=== PATIENT | male | born 1970 | race Two or more races ===

== ENCOUNTER 2022-06-04 21:10 | Emergency (ER) | payer BC, OTHER ==
[~2022-06-04] VITALS: Ht 162.6 cm; Wt 118.0 kg
[~2022-06-04 21:10] MED LIST: DOCU100T15 PO; METF-370 PO
[2022-06-04 23:53] VITALS: BP 134/73
[2022-06-05 00:07] LABS: Urine Bacteria MANY /hpf (None Seen); Urine Mucus FEW (None Seen); Urine Sperm PRESENT /hpf (None Seen); Urine WBC 2 /hpf (0 - 3)
[2022-06-05 00:08] LABS: Urine Specific Gravity 1.015 (1.001-1.035)
[2022-06-05 00:09] LABS: Urine Blood 4+ /uL (Negative)
== END 2022-06-04 23:53 | disposition home or self-care (01) ==
LOC: ER 21:14
DX: R33.9 Retention of urine, unspecified (principal); I10 Essential (primary) hypertension; E11.9 Type 2 diabetes mellitus without complications; Z90.89 Acquired absence of other organs; Z79.899 Other long term (current) drug therapy
CPT/HCPCS: 81001